=== PATIENT | male | born 1980 | race Caucasian/White ===

== ENCOUNTER 2024-06-12 13:32 | Observation (INO) | payer OTHER ==
[~2024-06-12] VITALS: Ht 188 cm; Wt 97.1 kg
[2024-06-12] MEDS: ONDANSETRON 4MG 2ML VIAL IV ONE (15:11)
[2024-06-12] MEDS: MORPHINE 4 MG/ML 1ML VIAL IV ONE (15:14)
[2024-06-12] MEDS: NS 1,000 ML IV SCH (15:54)
[2024-06-12 16:16] LABS: HEMATOCRIT 45.5 % (42.0-52.0); MEAN CORPUSCULAR HEMOGLOBIN 31.6 pg (27.0-33.0); MEAN CORPUSCULAR HGB CONC 35.2 g/dl (32.0-36.5); MEAN CORPUSCULAR VOLUME 89.7 fl (80.0-96.0); PLATELET COUNT, AUTOMATED 217 10^3/uL (150-450); RED BLOOD COUNT 5.07 10^6/uL (4.30-6.10); WHITE BLOOD COUNT 14.2 10^3/uL (4.0-10.0)
[2024-06-12 16:41] LABS: BLOOD UREA NITROGEN 13 MG/DL (9-23); CALCIUM LEVEL 9.2 MG/DL (8.5-10.1); CARBON DIOXIDE LEVEL 30 MMOL/L (20-31); CHLORIDE LEVEL 104 MMOL/L (98-107); CREATININE FOR GFR 0.79 MG/DL (0.70-1.30); GLOMERULAR FILTRATION RATE > 60.0 (>60); GLUCOSE, FASTING 111 MG/DL (60-100); POTASSIUM SERUM 4.2 MMOL/L (3.5-5.1); SODIUM LEVEL 138 MMOL/L (136-145)
[2024-06-12] MEDS ORDERED: MORPHINE 4 MG/ML 1ML VIAL IV PRN (17:00)
[2024-06-12] MEDS ORDERED: HOME MED LIST COMPLETE! XX SCH (17:00)
[2024-06-12] MEDS: MORPHINE 2 MG/ML 1ML VIAL IV PRN (18:03)
[2024-06-12] MEDS: ACETAMINOPHEN TAB 650MG DOSE (2X325MG) PO PRN (18:03)
[2024-06-12 18:20] LABS: HEMOGLOBIN 16.1 g/dl (13.5-17.5); MEAN CORPUSCULAR HEMOGLOBIN 31.3 pg (27.0-33.0); MEAN CORPUSCULAR VOLUME 89.5 fl (80.0-96.0); PLATELET COUNT, AUTOMATED 223 10^3/uL (150-450); RED BLOOD COUNT 5.14 10^6/uL (4.30-6.10); WHITE BLOOD COUNT 13.3 10^3/uL (4.0-10.0)
[2024-06-12 18:34] LABS: PARTIAL THROMBOPLASTIN TIME 22.3 SECONDS (24.8-34.2); PROTHROMBIN TIME 12.9 SECONDS (12.5-14.5)
[2024-06-12 21:09] VITALS: BP 144/86; TEMP 97.5; O2SAT 99
[2024-06-13] VITALS (9 sets, daily range): BP systolic 133–150; BP diastolic 71–92; TEMP 97.2–98.2; O2SAT 94–98
[2024-06-13] MEDS: NS 1,000 ML IV SCH (03:47)
[2024-06-13] MEDS ORDERED: ONDANSETRON 4MG 2ML VIAL As Ordered ONE (08:02)
[2024-06-13] MEDS ORDERED: fentaNYL 100 MCG/2 ML INJECTION As Ordered ONE (08:02)
[2024-06-13] MEDS ORDERED: MIDAZOLAM INJ 2MG/2ML VIAL As Ordered ONE (08:02)
[2024-06-13] MEDS ORDERED: LIDOCAINE 2% 100MG/5ML SDV (FOR ANES.) As Ordered ONE (08:02)
[2024-06-13] MEDS ORDERED: propofoL 200 MG/20 ML VIAL As Ordered ONE (08:02)
[2024-06-13] MEDS ORDERED: KETOROLAC 60MG 2ML VIAL As Ordered ONE (08:02)
[2024-06-13 08:03] LABS: BLOOD UREA NITROGEN 11 MG/DL (9-23); CALCIUM LEVEL 8.5 MG/DL (8.5-10.1); CARBON DIOXIDE LEVEL 24 MMOL/L (20-31); CHLORIDE LEVEL 108 MMOL/L (98-107); CREATININE FOR GFR 0.87 MG/DL (0.70-1.30); GLOMERULAR FILTRATION RATE > 60.0 (>60); GLUCOSE, FASTING 114 MG/DL (60-100); POTASSIUM SERUM 4.3 MMOL/L (3.5-5.1); SODIUM LEVEL 139 MMOL/L (136-145)
[2024-06-13] MEDS: ceFAZolin 2 GM/D5W 50 ML IV BAG As Ordered ONE (09:30)
[2024-06-13] MEDS ORDERED: HYDROmorphone HCL 2MG/ML 1ML VIAL As Ordered ONE (09:33)
[2024-06-13] MEDS ORDERED: ACETAMINOPHEN 1000MG 100ML IV BAG As Ordered ONE (09:37)
[2024-06-13] MEDS ORDERED: ONDANSETRON 4MG 2ML VIAL IV PRN (11:45)
[2024-06-13] MEDS ORDERED: fentaNYL 100 MCG/2 ML INJECTION IV PRN (11:45)
[2024-06-13] MEDS ORDERED: HYDROMORPHONE HCL 0.5 MG/ 0.5 ML SYRINGE IV PRN (11:45)
[2024-06-13] MEDS: LR 1,000 ML IV SCH (11:45)
[2024-06-13] MEDS ORDERED: oxyCODONE 5MG TAB PO PRN (11:45)
[2024-06-13] MEDS: ONDANSETRON 4MG 2ML VIAL IV PRN (13:35)
[2024-06-13] MEDS: ceFAZolin SOD 2 GM in IV 1 EA IV SCH (17:09)
[2024-06-14 01:13] VITALS: BP 135/74; TEMP 97.7; O2SAT 95
[2024-06-14 05:23] VITALS: BP 134/74; TEMP 97.9; O2SAT 96
[2024-06-14 06:48] LABS: BASO % 0.2 % (0.0-1.0); EOS % 0.1 % (0.0-3.0); LYMPH # 2.1 10^3/uL (1.5-5.0); LYMPH % 16.4 % (24.0-44.0); MEAN CORPUSCULAR HEMOGLOBIN 31.5 pg (27.0-33.0); MEAN CORPUSCULAR HGB CONC 34.5 g/dl (32.0-36.5); MEAN CORPUSCULAR VOLUME 91.1 fl (80.0-96.0); MONO # 1.2 10^3/uL (0.0-0.8); NEUTROPHILS # 9.4 10^3/uL (1.5-8.5); NEUTROPHILS % 73.8 % (36.0-66.0); PLATELET COUNT, AUTOMATED 188 10^3/uL (150-450); RED BLOOD COUNT 3.94 10^6/uL (4.30-6.10); WHITE BLOOD COUNT 12.8 10^3/uL (4.0-10.0)
[2024-06-14 06:56] LABS: HEMOGLOBIN 12.4 g/dl (13.5-17.5)
[2024-06-14 06:57] LABS: HEMATOCRIT 35.9 % (42.0-52.0)
[2024-06-14 07:17] LABS: BLOOD UREA NITROGEN 10 MG/DL (9-23); CARBON DIOXIDE LEVEL 26 MMOL/L (20-31); CHLORIDE LEVEL 110 MMOL/L (98-107); CREATININE FOR GFR 0.77 MG/DL (0.70-1.30); GLOMERULAR FILTRATION RATE > 60.0 (>60); GLUCOSE, FASTING 110 MG/DL (60-100); MAGNESIUM LEVEL 1.9 MG/DL (1.8-2.4); POTASSIUM SERUM 3.8 MMOL/L (3.5-5.1); SODIUM LEVEL 140 MMOL/L (136-145)
[2024-06-14 07:44] VITALS: BP 133/89; TEMP 98.1; O2SAT 99
[2024-06-14] MEDS ORDERED: OXYC1TAB23 PO (08:54)
== END 2024-06-14 11:50 | disposition home or self-care (01) ==
LOC: EDBD 13:32 → M ED 13:32 → M ED INP 17:00 → M MS5PR 21:09
PROVIDERS: ADMIT Internal Medicine; ATTEND Student in an Organized Health Care Education/Training Program
DX: S52.351A Displaced comminuted fracture of shaft of radius, right arm, initial encounter for closed fracture (principal); S52.251A Displaced comminuted fracture of shaft of ulna, right arm, initial encounter for closed fracture; S01.01XA Laceration without foreign body of scalp, initial encounter; M96.820 Accidental puncture and laceration of a musculoskeletal structure during a musculoskeletal system procedure; M25.511 Pain in right shoulder; S20.411A Abrasion of right back wall of thorax, initial encounter; S20.412A Abrasion of left back wall of thorax, initial encounter; W20.8XXA Other cause of strike by thrown, projected or falling object, initial encounter; Y92.9 Unspecified place or not applicable; Y93.11 Activity, swimming; Y99.9 Unspecified external cause status; Z88.0 Allergy status to penicillin; Z82.49 Family history of ischemic heart disease and other diseases of the circulatory system; Z82.0 Family history of epilepsy and other diseases of the nervous system
CPT/HCPCS: 25575; 36415; 70450; 73090; 76000; 80048; 83735; 85025; 85027; 85610; 85730; 86850; 86900; 86901; 96361; 96374; 96375; 96376; 97110; 97165; 99284; C1713; J0131; J0665; J0690; J1100; J1170; J1885; J2250; J2405; J3010